=== PATIENT | male | born 1995 | race African-American/Black ===

== ENCOUNTER 2018-04-29 14:38 | Emergency (ER) | payer BC, OTHER ==
[~2018-04-29] VITALS: Ht 175.3 cm; Wt 84.8 kg
[2018-04-29] MEDS ORDERED: VENTOLIN HFA 1818 GM INH (16:30)
[2018-04-29 16:40] LABS: ABSOLUTE NEUTROPHILS 4.1 thou/uL (1.4-8.2); BASOPHILS 0.7 % (0.0-2.0); EOSINOPHILS 0.6 % (0.0-3.0); HEMATOCRIT 41.3 % (42.0-52.0); HEMOGLOBIN 14.1 gm/dL (14.0-18.0); LYMPHOCYTES 21.3 % (24.0-44.0); MCH 30.4 pg (26.0-34.0); MCHC 34.2 g/dL (28.0-37.0); MCV 88.9 fL (80.0-100.0); MONOCYTES 10.7 % (1.0-8.0); PLATELET COUNT 274 thou/uL (150-400); POLYS 66.7 % (36.0-66.0); RBC 4.64 mil/uL (4.50-6.00); RDW 12.2 % (10.5-14.5); WBC 6.2 thou/uL (4.0-11.0)
[2018-04-29 16:48] LABS: CALCIUM 9.8 mg/dL (8.5-10.1)
[2018-04-29 16:54] LABS: ALBUMIN 4.4 g/dL (3.4-5.0); TOTAL BILIRUBIN 0.5 mg/dL (<0.1-1.0); TOTAL PROTEIN 7.9 g/dL (6.4-8.2)
[2018-04-29 16:56] LABS: URINE BILIRUBIN NEGATIVE (Negative); URINE BLOOD NEGATIVE (Negative); URINE CLARITY CLEAR; URINE COLOR YELLOW; URINE GLUCOSE-RANDOM* NEGATIVE (Negative); URINE KETONES NEGATIVE (Negative); URINE LEUKOCYTES-REFLEX NEGATIVE (Negative); URINE NITRITE-REFLEX NEGATIVE (Negative); URINE PROTEIN (DIPSTICK) NEGATIVE (Negative)
[2018-04-29] MEDS ORDERED: ZOFRAN ODT4 MG PO (17:37)
[2018-04-29 17:54] VITALS: BP 126/71
== END 2018-04-29 18:05 | disposition home or self-care (01) ==
LOC: ER 14:38
PROVIDERS: Physician Assistant
DX: R11.2 Nausea with vomiting, unspecified (principal); R10.13 Epigastric pain